=== PATIENT | female | born 1990 | race Caucasian/White ===

== ENCOUNTER → 2019-12-21 | Outpatient (CLI) | payer OTHER ==
[~2019-12-21] MED LIST: CHOL500021 PO; LACT1CAP6 PO; PREN1TAB80 PO
== END ==
LOC: LAB 09:16
PROVIDERS: ATTEND Nurse Anesthetist, Certified Registered
DX: Z01.812 Encounter for preprocedural laboratory examination (principal); Z12.11 Encounter for screening for malignant neoplasm of colon; Z20.828 Contact with and (suspected) exposure to other viral communicable diseases
CPT/HCPCS: U0003

== ENCOUNTER → 2019-12-25 | Day surgery (SDC) | payer OTHER ==
[~2019-12-25] MED LIST changes: +IPRATRPIUM/ALBUTEROL 0.5/2.5MG 3 ML NEBU. NEB PRN; +IV RINGERS SOLUTION,LACTATED 1,000 ML IV SCH; +MIDAZOLAM HCL PF 2 MG/2 ML VIAL. IV ONE; +ONDANSETRON PF 4 MG/2 ML VIAL. IV PRN; +PROPOFOL 10,000 MCG/ML (20ML) VIAL IV ONE
[2019-12-25 09:04] LABS: U PREG PATIENT NEGATIVE (NEG)
[2019-12-25 10:45] VITALS: BP 97/62
--- NOTE | 2019-12-27 23:11 | PATHOLOGY ---
[facility] Accession Number: [id number] . 01 Material submitted: . PART A: ileum - TERMINAL ILEUM BIOPSY PART B: colon - RANDOM COLON BIOPSY . 02 Diagnosis: A. "Terminal ileal biopsy", biopsy: - Small bowel mucosa with mild reactive changes, reactive appearing lymphoid aggregate and focal active ileitis; no dysplasia seen. . B. "Random colon BX", biopsy: - Colonic mucosa with mild reactive changes and focal active colitis; no dysplasia seen (see comment). (CLW:[facility] 12/27/2019) [facility] 12/27/2019 1023 Local . 02 Comment: Focal active colitis can be seen in resolving infectious type colitis, incidentally with bowel preparation and quiescent chronic idiopathic inflammatory bowel disease. Clinical and endoscopic correlation is recommended. (CLW:[facility] 12/27/2019) . 02 Electronically signed: . Chuyita Ashton MD, Pathologist NPI- [id number] . 01 Gross description: . A. The specimen is received in formalin, labeled "Karla Lambert, terminal ileal biopsy". Received are three segments of pale sykes soft tissue ranging in size from 0.2 to 0.3 cm in maximum dimensions. The specimen is submitted entirely in cassette A1. . B. The specimen is received in formalin, labeled "Karla Lambert, random colon biopsy". Received are multiple segments of pale sykes soft tissue ranging in size from 0.3 to 0.5 cm in maximum dimensions. The specimen is submitted entirely in cassette B1. ([facility]; 12/26/2019) QAC/QAC 12/26/2019 1326 Local . 02 Pathologist provided ICD-10: K52.9, K63.9 . 02 CPT . 135307, [id number] Specimen Comment: A courtesy copy of this report has been sent to [phone] Specimen Comment: [id number] Specimen Comment: Report sent to DR MARTINEZ [facility]formed at: 01 [facility] [address] [id number] MD Mainor Matias MD Phone: [phone] Performed at: 02 [facility] [address] [place], [place] [id number] MD Roman Rodriguez MD Phone: [phone]
== END ==
LOC: SURG 08:37
PROVIDERS: ATTEND Emergency Medicine
DX: K92.1 Melena (principal); K63.89 Other specified diseases of intestine; K64.8 Other hemorrhoids; Z88.8 Allergy status to other drugs, medicaments and biological substances; Z79.899 Other long term (current) drug therapy
CPT/HCPCS: 45380; 81025; J2704; J7120